=== PATIENT | female | born 1950 | race Two or more races ===

== ENCOUNTER 2016-12-27 16:19 | Inpatient (IN) | payer OTHER ==
[~2016-12-27] VITALS: Ht 154.9 cm; Wt 54.9 kg
[2016-12-27 16:25] VITALS: BP 122/71
--- NOTE | 2016-12-27 16:25 | NUR ---
PT TAKEN TO BED 4
--- NOTE | 2016-12-27 16:25 | NUR ---
EKG AT BEDSIDE
--- NOTE | 2016-12-27 16:26 | NUR ---
66 /F BIBA FROM HOME FOR CHEST PAIN AWAKE AND ALERT ON ARRIVAL.DENIES N/V/D; SKIN IS PINK/WARM/DRY; AAOX4 WITH EVEN AND STEADY GAIT; LUNGS CLEAR BL; HR EVEN AND REGULAR; PT DENIES ANY FEVER, SOB, OR COUGH AT THIS TIME; PATIENT STATES PAIN OF 5/10 AT THIS TIME; PATIENT POSITIONED FOR COMFORT; HOB ELEVATED; BEDRAILS UP X2; BED DOWN. ER MD MADE AWARE OF PT STATUS.
--- NOTE | 2016-12-27 16:27 | NUR ---
DR SMITH EVALUATING PT AT BEDSIDE.
[2016-12-27] MEDS ORDERED: NITR0.4T2 SL (16:30)
[2016-12-27] MEDS ORDERED: METF500T PO (16:30)
[2016-12-27] MEDS ORDERED: ASPIRIN 325 MG TAB PO ONE (16:35)
[2016-12-27] MEDS ORDERED: NITROGLYCERIN 0.4 MG TAB SL ONE (16:35)
--- NOTE | 2016-12-27 16:53 | NUR ---
X RAY AT BEDSIDE. Addendum: 12/27/16 at 1653 by [facility] DAUGHTER AT BEDSIDE.
--- NOTE | 2016-12-27 16:53 | NUR ---
LAB AT BEDSIDE
--- NOTE | 2016-12-27 17:02 | NUR ---
PT STS PAIN3/10 Addendum: 12/27/16 at 1702 by [email or web address] Patient appears to be resting comfortably in bed. Vital Signs within normal limits. Respirations even and unlabored.WILL CONTINUE TO MONITOR.
[2016-12-27 17:16] LABS: BASOPHILS # (AUTO) 0.2 K/uL (0.00-0.22); EOSINOPHILS # (AUTO) 0.1 K/uL (0-0.4); EOSINOPHILS % (AUTO) 1.4 % (0.0-4.0); HEMATOCRIT 39.4 % (36-48); HEMOGLOBIN 13.1 g/dL (12.0-16.0); LYMPHOCYTES % (AUTO) 17.1 % (20.5-51.1); MEAN CORPUSCULAR HEMOGLOBIN 27 pg (27-31); MEAN CORPUSCULAR HGB CONC 33 g/dL (33-37); MEAN CORPUSCULAR VOLUME 81 fL (80-94); MONOCYTES # (AUTO) 0.5 K/uL (0.8-1.0); MONOCYTES % (AUTO) 8.9 % (1.7-9.3); NEUTROPHILS # (AUTO) 4.1 K/uL (1.8-7.7); NEUTROPHILS % (AUTO) 69.6 % (42.2-75.2); PLATELET COUNT (AUTO) 203 K/uL (140-450); RED BLOOD CELL COUNT(AUTO) 4.87 MIL/uL (4.20-5.40); RED CELL DISTRIBUTION WIDTH 12.5 % (11.6-13.7); WHITE BLOOD COUNT (AUTO) 5.9 K/uL (4.8-10.8)
[2016-12-27 17:30] LABS: ANION GAP 10.6 (8-16); CALCIUM 8.8 mg/dL (8.5-10.1); CARBON DIOXIDE 26.3 mmol/L (21-32); CREATININE 0.7 mg/dL (0.6-1.3); POTASSIUM 3.9 mmol/L (3.5-5.1)
[2016-12-27 17:34] LABS: INR 1.2 (0.8-1.2); PARTIAL THROMBOPLASTIN TIME 27.2 secs (22-35.6)
[2016-12-27 17:35] LABS: ALBUMIN 3.3 g/dL (3.4-5.0); TOTAL BILIRUBIN 0.4 mg/dL (0.0-1.0); TOTAL PROTEIN, SERUM 6.5 g/dL (6.4-8.2)
[2016-12-27 17:45] LABS: D-DIMER < 100 ng/ml (0-400)
--- NOTE | 2016-12-27 18:36 | NUR ---
DR SMITH REEVALUATING PT AT BEDSIDE.
[2016-12-27] MEDS ORDERED: ACETAMINOPHEN 325 MG TAB PO PRN (18:55)
[2016-12-27] MEDS ORDERED: ONDANSETRON 4 MG/2 ML VIAL IVP PRN (18:55)
--- NOTE | 2016-12-27 19:08 | NUR ---
t report given to RN PIN. Transfer of care at this time.
--- NOTE | 2016-12-27 19:09 | NUR ---
GOT REPORT FROM MOMO HYLTON. PT. RESTING IN BED, NO S/SX OF DISTRESS AT THIS TIME.
--- NOTE | 2016-12-27 19:16 | NUR ---
Crow rodriguez in ED - 12/27/16 at 1921 by [facility] Pt report given to MOMO RINCON. Transfer of care at this time.
--- NOTE | 2016-12-27 19:26 | NUR ---
Patient will be admitted to care of . Admited to TELEMERY. Will go to room 106A. Belongings list completed. Report to MOMO DICKINSON.
--- NOTE | 2016-12-27 19:38 | NUR ---
RECEIVED FROM MANAGER COMMERCIAL AWAKE AND ALERT. VERBALIZES WELL IN [place] DIALECT WITH DAUGHTER WHO SPEAKS GOOD [place] AT BEDSIDE. PT. DX. OF SOB, ATYPICAL CHEST PAIN AND R/O ACS. CARE PLANS FOR THE NIGHT DISCUSSED WITH HER AND DAUGHTER. ORIENTED TO CALL LIGHT USE FOR ANY HELP SHE MAY NEED OR IF IN PAIN. ENCOURAGED TO CALL FOR AN Y PAIN SHE MIGHT HAVE WHICH PT. SMILED AND SAID SHE CAN SAY IN PAIN IN [place].
[2016-12-27 20:23] VITALS: BP 137/76
--- NOTE | 2016-12-27 22:09 | NUR ---
PT. PROVIDED HISTORY IN [facility] WITH THE HELP OF [employer] FINANCIAL AID DIRECTOR IN [facility] # [id number] WITH MORAE/NAME OF FINANCIAL AID DIRECTOR USED.
--- NOTE | 2016-12-27 22:30 | NUR ---
PT. INDEPENDENT AND WALKS TO BRP . ROM X 4. NO SEQUENTIALS IN PLACE .
[2016-12-28] VITALS: BP 115/60
--- NOTE | 2016-12-28 00:07 | NUR ---
PT. SLEEPING AT THIS TIME. DAUGHTER LEFT FOR HOME EARLIER. PRIOR LEAVING DAUGHTER INTERPRETED TO PT. THAT SHE CAN USE CALL LIGHT FOR HELP IF IN PAIN AND IF SHE NEEDS ANY HELP. "OK" .PT. NOTED CAN SAY YES OR NO. "OK" TELEMETRY MONITORING NSR 62.
[2016-12-28 01:55] LABS: CREATINE KINASE MB 0.8 ng/mL (0-3.6)
--- NOTE | 2016-12-28 02:00 | NUR ---
SLEEPING WELL. NO RESTLESSNESS. TELEMETRY MONITORING.
--- NOTE | 2016-12-28 04:00 | NUR ---
TELEMETRY MONITORING. NO SOB. CALL LIGHT WITH IN REACH. NSR ON MONITOR.
[2016-12-28 04:38] VITALS: BP 115/52
--- NOTE | 2016-12-28 06:35 | NUR ---
SLEPT WELL THIS SHIFT. NO COMPLAINTS OF FURTHER CHEST PAIN MADE. CALL LIGHT WITH IN REACH AT ALL TIMES.
--- NOTE | 2016-12-28 06:55 | NUR ---
PATIENT HAS BEEN SCREENED AND CATEGORIZED MODERATE NUTRITION RISK. PATIENT WILL BE SEEN WITHIN 3-5 DAYS OF ADMISSION. 12/29/16-12/31/16 ERAN SIN MS, RDN
--- NOTE | 2016-12-28 07:16 | NUR ---
ENDORSED TO THE NEXT RN FOR CONTINUITY OF CARE. SLEEPING. NO RESTLESSNESS NOTED. NO SOB. CALL LIGHT WITH IN REACH. A/O X 4. ROM X 4. CLEAR SPEECH.
--- NOTE | 2016-12-28 07:20 | NUR ---
RECEIVED REPORT FROM SERVICE AGENT NURSE, PT IS SLEEPING BUT EASILY AWAKEN, PT IS A/OX4, AMBULATORY, IV IS ON THE LT HAND, PATENT, INTACT, FLUSHING WELL, SKIN IS INTACT, NO S/S OF RESPIRATORY DISTRESS OR DISCOMFORT NOTED, SAFETY/FALL PRECAUTIONS ARE IN PLACE, CALL LIGHT IS WITHIN REACH, WILL CONTINUE TO MONITOR.
[2016-12-28 08:00] VITALS: BP 114/73
--- NOTE | 2016-12-28 09:00 | NUR ---
PATIENT IS RESTING IN BED, PATIENT'S BROTHER IS AT BEDSIDE.
[2016-12-28 09:17] LABS: CREATINE KINASE MB 0.7 ng/mL (0-3.6)
--- NOTE | 2016-12-28 10:10 | NUR ---
PATIENT IS RESTING IN BED TALKING ON THE PHONE, CALL LIGHT IS WITHIN REACH.
--- NOTE | 2016-12-28 11:26 | NUR ---
PATIENT IS RESTING IN BED, PATIENT'S DAUGHTER IS AT BEDSIDE, CALL LIGHT IS WITHIN REACH.
[2016-12-28 12:00] VITALS: BP 127/61
[2016-12-28] MEDS ORDERED: INSULIN LISPRO SLIDING SCALE 100 UNITS/ML VIAL SUBQ PRN (13:20)
--- NOTE | 2016-12-28 13:45 | NUR ---
PATIENT OFF UNIT TO HAVE CT-SCAN OF THE HEAD DONE.
--- NOTE | 2016-12-28 14:15 | NUR ---
PT RETURNED TO UNIT FROM HAVING CT-SCAN DONE. PT IS STABLE RESTING IN BED.
[2016-12-28 16:00] VITALS: BP 122/65
--- NOTE | 2016-12-28 16:35 | NUR ---
PT IS RESTING IN BED, NO S/S OF RESPIRATORY DISTRESS OR DISCOMFORT NOTED, CALL LIGHT WITHIN REACH.
--- NOTE | 2016-12-28 18:20 | NUR ---
PT IS SLEEPING IN BED AT THIS TIME.
--- NOTE | 2016-12-28 19:09 | NUR ---
ENDORSED PT TO HISTORY TEACHER NURSE FOR CONTINUITY OF CARE, PT STABLE AT THIS TIME.
--- NOTE | 2016-12-28 19:30 | NUR ---
RECEIVED FROM AM RN IN BED AWAKE AND ALERT. NO SOB. DENIES ANY PAIN AT THIS TIME. ABLE TO VERBALIZE SIMPLE NEEDS IN [place]. ENCOURAGED TO CALL FOR ANY HELP SHE MAY NEED AND TO USE CALL LIGHT FOR ANY PAIN SHE MIGHT HAVE. DX. CHEST PAIN R/O ACS. INDEPENDENT. TELEMETRY MONITORING. NSR 80 IN MONITOR AT THIS TIME.
[2016-12-28 20:00] VITALS: BP 116/72
--- NOTE | 2016-12-28 23:20 | NUR ---
STILL AWAKE AND ON HER PHONE WATCHING [place] SHOW. ENCOURAGED TO GO SLEEP AND REST. PT. NOD HEAD TO SAY YES. TELEMETRY MONITORING. NO C/O OF PAIN DONE.
[2016-12-29 00:48] VITALS: BP 122/62
--- NOTE | 2016-12-29 01:30 | NUR ---
STILL AWAKE . ENCOURAGED TO SLEEP. PT. ON THE PHONE.
--- NOTE | 2016-12-29 03:17 | NUR ---
SLEEPING. NO RESTLESSNESS. TELEMETRY MONITORING. NPO RT FOR STRESS TEST IN A.M.
[2016-12-29 05:02] VITALS: BP 116/58
--- NOTE | 2016-12-29 07:09 | NUR ---
ENDORSED TO THE NEXT RN FOR CONTINUITY OF CARE AWAKE , ALERT AND ORIENTED X 4. ROM X 4. CLEAR SPEECH. REMINDED TO NPO STATUS . PT. NODS HEAD FOR YES . TELEMETRY MONITORING.
--- NOTE | 2016-12-29 07:10 | NUR ---
RECEIVED REPORT FROM BUREAU DIRECTOR NURSE, PT IS RESTING IN BED, PT IS A/OX4, AMBULATORY, IV IS ON THE LT HAND, PATENT, INTACT, FLUSHING WELL, SKIN IS INTACT, NO S/S OF RESPIRATORY DISTRESS OR DISCOMFORT NOTED, SAFETY/FALL PRECAUTIONS ARE IN PLACE, CALL LIGHT IS WITHIN REACH, WILL CONTINUE TO MONITOR.
[2016-12-29 08:00] VITALS: BP 135/71
--- NOTE | 2016-12-29 09:15 | NUR ---
PT IS SLEEPING IN BED AT THIS TIME.
--- NOTE | 2016-12-29 11:05 | NUR ---
PT OFF UNIT TO HAVE STRESS TEST DONE.
--- NOTE | 2016-12-29 11:40 | NUR ---
PT RETURNED TO UNIT FROM HAVING A STRESS TEST DONE, PT STABLE AT THIS TIME.
[2016-12-29 12:00] VITALS: BP 141/75
--- NOTE | 2016-12-29 12:45 | NUR ---
STRESS TEST COMPLETED
--- NOTE | 2016-12-29 13:10 | NUR ---
PT IS RESTING IN BED, FAMILY IS AT BEDSIDE, CALL LIGHT WITHIN REACH.
--- NOTE | 2016-12-29 14:05 | NUR ---
FAXED INITIAL REVIEW TO [facility] [phone] PHONE [phone] ROHAN Brandt [id number]
--- NOTE | 2016-12-29 15:05 | NUR ---
DISCHARGE INSTRUCTIONS GIVEN, ID WRIST BAND REMOVED, IV REMOVED, CATHETER TIP INTACT. PT STABLE UPON DISCHARGE ACCOMPANIED BY HER DAUGHTER.
== END 2016-12-29 15:05 | disposition home or self-care (01) | DRG 203 ==
LOC: MED 16:19 → MTU 18:51 → UNDOADMIN 18:51 → MTU 12-28 13:36
PROVIDERS: ADMIT Hospitalist; ATTEND Hospitalist
DX: R07.89 Other chest pain (principal); E87.1 Hypo-osmolality and hyponatremia; I10 Essential (primary) hypertension; E11.9 Type 2 diabetes mellitus without complications; Z87.891 Personal history of nicotine dependence; Z79.899 Other long term (current) drug therapy
CPT/HCPCS: 36415; 70450; 71010; 80053; 82550; 82553; 83880; 84484; 85025; 85379; 85610; 85730; 87081; 93005; 93017; 99285; J1815; Q0092